=== PATIENT | male | born 1950 | race Caucasian/White ===

== ENCOUNTER 2019-01-30 09:01 | Inpatient (IN) ==
[2019-01-30] MEDS ORDERED: ONDANSETRON 4 MG/2 ML VIAL IV STA (09:23)
[2019-01-30] MEDS ORDERED: PANTOPRAZOLE 40 MG VIAL IV STA (09:23)
[2019-01-30] MEDS ORDERED: METOCLOPRAMIDE 10 MG/2 ML VIAL IV STA (09:23)
[2019-01-30 09:48] LABS: Basophils % 9.1 % (0.0-0.8); Eosinophils % 4.5 % (0.00-10.9); Hematocrit 25.7 VOL% (42.0-52.0); Hemoglobin 7.7 GM/DL (14.0-18.0); Immature Granulocytes % 31.8 %; Immature Granulocytes Absolute 0.07 #; Lymphocytes % 13.6 % (21.2-54.2); Mean Corpuscular Volume 81.3 FL (87-102); Mean Platelet Volume 10.1 FL (9.6-12.0); Monocytes % 9.1 % (1.7-12.7); Neutrophils % 31.9 % (38.7-73.9); Platelet Count 86 T/CUMM (130-400); Red Blood Count 3.16 MC/CUMM (3.8-5.5); Red Cell Distribution Width 16.4 % (9.3-17.3)
[2019-01-30 09:52] LABS: White Blood Count 0.2 T/CUMM (4-12)
[2019-01-30 10:09] LABS: Alanine Aminotransferase 17 U/L (16-61); Albumin 1.4 G/DL (3.4-5.0); Alkaline Phosphatase 137 U/L (45-117); Amylase 9 U/L (25-115); Aspartate Amino Transferase 29 U/L (0-37); Blood Urea Nitrogen 14 MG/DL (7-18); Calcium 7.6 MG/DL (8.5-10.1); Estimated Glom Filtration Rate 100 ML/MIN; Glucose 109 MG/DL (74-106); Osmolality,Calculated 284.1 MOS/KG (273-304); Troponin I < 0.015 NG/ML (0.00-0.045)
[2019-01-30 10:36] LABS: Eosinophils 7 % (0-10); Lymphocytes 31 % (20-55); Segmented Neutrophils 62 % (50-85); Total Cells Counted 100
[2019-01-30 10:37] LABS: Hypochromasia Slight; Microcytosis 1+; Platelet Estimate Decreased
[2019-01-30] MEDS ORDERED: POTASSIUM BICARB EFFERVESCENT 25 MEQ TABLET PO ONE (10:39)
[2019-01-30] MEDS ORDERED: ONDANSETRON 4 MG/2 ML VIAL IV PRN (11:47)
[2019-01-30] MEDS ORDERED: DOCUSATE SODIUM 100 MG CAPSULE PO PRN (11:47)
[2019-01-30] MEDS ORDERED: ACETAMINOPHEN 325 MG TABLET PO PRN (11:47)
[2019-01-30] MEDS ORDERED: SODIUM CHLORIDE 0.9% 1,000 ML IV PRN (13:31)
[2019-01-30] MEDS ORDERED: chlorproMAZINE INJ 25 MG in SODIUM CHLORIDE 0.9% 100 ML IV PRN (13:51)
[2019-01-30] MEDS ORDERED: MEROPENEM 1,000 MG in SODIUM CHLORIDE 0.9% 100 ML IV SCH (14:00)
[2019-01-30] MEDS: DEXT 5% NACL 0.45% KCL 20 MEQ 20 MEQ/1,000 ML BAG IV SCH (14:26)
[2019-01-30] MEDS: VANCOMYCIN INJ 1,000 MG in SODIUM CHLORIDE 0.9% 250 ML IV SCH (14:27)
[2019-01-30] MEDS: FILGRASTIM-SNDZ 300 MCG/0.5 ML SYRINGE SUBCUT SCH (14:29)
[2019-01-30] MEDS: PANTOPRAZOLE 40 MG TABLET PO SCH ×2 (14:29→14:36)
[2019-01-30] MEDS: MORPHINE 4 MG/1 ML VIAL IV PRN (16:32)
[2019-01-30] MEDS: MEROPENEM 1,000 MG in SODIUM CHLORIDE 0.9% 100 ML IV SCH (16:37)
[2019-01-30] MEDS: METOCLOPRAMIDE 10 MG TABLET PO SCH ×2 (16:38→22:37)
[2019-01-30] MEDS: MORPHINE IR 15 MG TABLET PO PRN (17:55)
[2019-01-30] MEDS ORDERED: POTASSIUM CHLORIDE RIDER 100 ML IV ONE (18:22)
[2019-01-30] MEDS ORDERED: POTASSIUM CHLORIDE RIDER 10 MEQ in PREMIX 1 EACH IV PRN (18:24)
[2019-01-30 19:00] LABS: Basophils % 11.1 % (0.0-0.8); Hematocrit 22.3 VOL% (42.0-52.0); Hemoglobin 6.6 GM/DL (14.0-18.0); Immature Granulocytes % 22.2 %; Immature Granulocytes Absolute 0.02 #; Lymphocytes % 44.4 % (21.2-54.2); Mean Corpuscular HGB Conc 29.6 GM/DL (32-36); Mean Corpuscular Volume 81.7 FL (87-102); Mean Platelet Volume 10.1 FL (9.6-12.0); Monocytes % 11.1 % (1.7-12.7); Neutrophils % 11.2 % (38.7-73.9); Platelet Count 48 T/CUMM (130-400); Red Blood Count 2.73 MC/CUMM (3.8-5.5); Red Cell Distribution Width 16.6 % (9.3-17.3)
[2019-01-30 19:06] LABS: White Blood Count 0.1 T/CUMM (4-12)
[2019-01-30 19:42] LABS: Alanine Aminotransferase 14 U/L (16-61); Albumin 1.3 G/DL (3.4-5.0); Alkaline Phosphatase 116 U/L (45-117); Aspartate Amino Transferase 19 U/L (0-37); Blood Urea Nitrogen 12 MG/DL (7-18); Calcium 6.5 MG/DL (8.5-10.1); Estimated Glom Filtration Rate 95 ML/MIN; Glucose 203 MG/DL (74-106); Osmolality,Calculated 291.8 MOS/KG (273-304); Total Protein 4.6 G/DL (6.4-8.3)
[2019-01-30 20:05] LABS: Lymphocytes 75 % (20-55); Segmented Neutrophils 25 % (50-85); Total Cells Counted 100
[2019-01-30 20:06] LABS: Microcytosis 2+; Spherocytes 1+
[2019-01-30 20:11] LABS: Anisocytosis 2+; Hypochromasia 2+; Ovalocytes Few; Platelet Estimate Decreased
[2019-01-30] MEDS: FAMOTIDINE 20 MG TABLET PO SCH (22:38)
[2019-01-30] MEDS: DRONABINOL 2.5 MG CAPSULE PO SCH (22:38)
[2019-01-31] MEDS: DEXT 5% NACL 0.45% KCL 20 MEQ 20 MEQ/1,000 ML BAG IV SCH ×2 (00:21→05:33)
[2019-01-31] MEDS: MEROPENEM 1,000 MG in SODIUM CHLORIDE 0.9% 100 ML IV SCH ×3 (01:03→15:03)
[2019-01-31] MEDS: VANCOMYCIN INJ 1,000 MG in SODIUM CHLORIDE 0.9% 250 ML IV SCH ×2 (02:53→13:04)
[2019-01-31 05:11] LABS: Hematocrit 25.8 VOL% (42.0-52.0); Hemoglobin 7.9 GM/DL (14.0-18.0); Mean Corpuscular HGB Conc 30.6 GM/DL (32-36); Mean Corpuscular Volume 82.2 FL (87-102); Mean Platelet Volume 11.3 FL (9.6-12.0); Platelet Count 47 T/CUMM (130-400); Red Blood Count 3.14 MC/CUMM (3.8-5.5); Red Cell Distribution Width 16.4 % (9.3-17.3)
[2019-01-31 05:13] LABS: White Blood Count 0.1 T/CUMM (4-12)
[2019-01-31 05:21] LABS: Apearance,Urine Slightly Hazy (Clear); Bilirubin,Urine Negative (Negative); Blood, Urine Moderate mg/dL (Negative); Glucose,Urine (UA) 50 mg/dL (Negative); Hyaline Casts,Urine 1 /LPF (0-3); Ketones,Urine Negative (Negative); Mucus,Urine Occasional /LPF (Occasional); Nitrite,Urine Negative (Negative); Protein,Urine Negative; RBC,Urine 4 /HPF (0-4); Urine Color Amber (Yellow); Urine Specific Gravity 1.036 (1.001-1.035); Urine Urobilinogen < 2.0 EU/DL (0.2-1.0); WBC,Urine 2 /HPF (0-6)
[2019-01-31 05:26] LABS: Bilirubin,Total 0.8 MG/DL (0.2-1.0); Calcium 5.9 MG/DL (8.5-10.1); Osmolality,Calculated 286.7 MOS/KG (273-304); Total Protein 4.5 G/DL (6.4-8.3)
[2019-01-31 05:36] LABS: Risk Ratio 4.95; Thyroid Stimulating Hormone 0.496 uIU/ml (0.358-3.74); VLDL CHOLESTEROL 32.2 MG/DL
[2019-01-31 05:41] LABS: Atypical Lymphocytes Few; Lymphocytes 100 % (20-55); Total Cells Counted 100
[2019-01-31 05:42] LABS: Hypochromasia 2+; Microcytosis 1+; Ovalocytes Few
[2019-01-31 05:43] LABS: Platelet Estimate Decreased
[2019-01-31] MEDS ORDERED: SODIUM CHLORIDE 0.9% 1,000 ML IV PRN ×2 (06:51→08:07)
[2019-01-31] MEDS: METOCLOPRAMIDE 10 MG TABLET PO SCH ×4 (07:38→22:57)
[2019-01-31] MEDS: POTASSIUM CHLORIDE 20 MEQ TABLET PO PRN ×4 (07:39→15:05)
[2019-01-31] MEDS: DRONABINOL 2.5 MG CAPSULE PO SCH ×2 (09:10→22:57)
[2019-01-31] MEDS: FILGRASTIM-SNDZ 300 MCG/0.5 ML SYRINGE SUBCUT SCH (09:12)
[2019-01-31] MEDS: CLOTRIMAZOLE 1% CREAM 15 GM TUBE TOP SCH ×2 (09:12→23:02)
[2019-01-31] MEDS: BACITRACIN OINT 0.9 GM PACK TOP SCH ×2 (09:12→22:14)
[2019-01-31] MEDS: PANTOPRAZOLE 40 MG TABLET PO SCH (09:12)
[2019-01-31] MEDS: FAMOTIDINE 20 MG TABLET PO SCH ×2 (09:12→21:59)
[2019-01-31] MEDS: MAGNESIUM CHLORIDE 64 MG TABLET PO SCH ×3 (09:20→21:59)
[2019-01-31] MEDS ORDERED: MAGNESIUM SULFATE 1 GM/2 ML VIAL IM ONE (10:24)
[2019-01-31] MEDS ORDERED: MAGNESIUM SULFATE 1 GM/2 ML VIAL IV ONE (12:26)
[2019-01-31] MEDS ORDERED: MAGNESIUM SULF RIDER 2 GM in PREMIX 1 EACH IV ONE (12:29)
[2019-02-01] MEDS: MEROPENEM 1,000 MG in SODIUM CHLORIDE 0.9% 100 ML IV SCH ×3 (00:15→18:43)
[2019-02-01] MEDS: DEXT 5% NACL 0.45% KCL 20 MEQ 20 MEQ/1,000 ML BAG IV SCH ×5 (02:13→22:44)
[2019-02-01] MEDS: VANCOMYCIN INJ 1,000 MG in SODIUM CHLORIDE 0.9% 250 ML IV SCH ×2 (02:16→15:10)
[2019-02-01 02:46] LABS: Hematocrit 38.1 VOL% (42.0-52.0); Hemoglobin 12.2 GM/DL (14.0-18.0); Mean Corpuscular Volume 81.4 FL (87-102); Mean Platelet Volume 10.7 FL (9.6-12.0); Red Blood Count 4.68 MC/CUMM (3.8-5.5); Red Cell Distribution Width 16.4 % (9.3-17.3)
[2019-02-01 02:54] LABS: Platelet Count 24 T/CUMM (130-400); White Blood Count 0.1 T/CUMM (4-12)
[2019-02-01 03:06] LABS: Albumin 1.5 G/DL (3.4-5.0); Bilirubin,Total 1.4 MG/DL (0.2-1.0); Calcium 7.3 MG/DL (8.5-10.1); Osmolality,Calculated 297.1 MOS/KG (273-304); Total Protein 6.1 G/DL (6.4-8.3)
[2019-02-01 03:43] LABS: Anisocytosis Slight; Hypochromasia 1+; Lymphocytes 82 % (20-55); Microcytosis 1+; Platelet Estimate Decreased; Total Cells Counted 100
[2019-02-01] MEDS ORDERED: MEROPENEM 1,000 MG in SODIUM CHLORIDE 0.9% 100 ML IV SCH (07:30)
[2019-02-01] MEDS ORDERED: FILGRASTIM-SNDZ 300 MCG/0.5 ML SYRINGE SUBCUT SCH (08:34)
[2019-02-01] MEDS: MAGNESIUM CHLORIDE 64 MG TABLET PO SCH ×3 (09:40→20:34)
[2019-02-01] MEDS: FILGRASTIM-SNDZ 480 MCG/0.8 ML SYRINGE SUBCUT SCH (09:42)
[2019-02-01] MEDS: FAMOTIDINE 20 MG TABLET PO SCH ×2 (09:43→20:34)
[2019-02-01] MEDS: METOCLOPRAMIDE 10 MG TABLET PO SCH ×4 (09:43→20:34)
[2019-02-01] MEDS: POTASSIUM CHLORIDE 20 MEQ TABLET PO PRN ×3 (09:43→15:11)
[2019-02-01] MEDS: PANTOPRAZOLE 40 MG TABLET PO SCH (09:43)
[2019-02-01] MEDS: DRONABINOL 2.5 MG CAPSULE PO SCH ×2 (09:44→20:34)
[2019-02-01] MEDS: ALLOPURINOL 300 MG TABLET PO SCH (09:48)
[2019-02-01] MEDS: BACITRACIN OINT 0.9 GM PACK TOP SCH ×2 (09:49→20:34)
[2019-02-01] MEDS: CLOTRIMAZOLE 1% CREAM 15 GM TUBE TOP SCH ×2 (09:51→20:34)
[2019-02-01] MEDS ORDERED: SODIUM CHLORIDE 0.9% 500 ML IV ONE (11:53)
[2019-02-01] MEDS ORDERED: SODIUM CHLORIDE 0.9% 1,000 ML IV ONE (12:10)
[2019-02-01] MEDS ORDERED: METOPROLOL TARTRATE 5 MG/5 ML VIAL IV ONE ×4 (22:09→23:34)
[2019-02-01] MEDS ORDERED: DILTIAZEM 50 MG/10 ML VIAL IV ONE ×2 (22:09→22:21)
[2019-02-01] MEDS ORDERED: DILTIAZEM 25 MG/5 ML VIAL IV ONE (22:10)
[2019-02-01] MEDS ORDERED: LACTATED RINGERS 1,000 ML IV ONE (22:11)
[2019-02-01 22:25] LABS: Allen Test Positive
[2019-02-01] MEDS ORDERED: LACTATED RINGERS 500 ML IV ONE ×2 (22:26→22:32)
[2019-02-01 22:27] LABS: ABG Base Excess -3.4 MMOL/L (-2.5-2.5); ABG HCO3 21.6 MMOL/L (20-26); ABG Oxygen Saturation 99.5 % (95-100); ABG PCO2 34.8 MM HG (35-48); ABG PH 7.387 (7.35-7.45); ABG TCO2 18.6 MMOL/L (23-27)
[2019-02-01] MEDS ORDERED: dilTIAZem Drip 125 MG/125 ML PREMIX IV SCH (22:30)
[2019-02-01 22:39] LABS: Blood Urea Nitrogen 14 MG/DL (7-18); Calcium 6.5 MG/DL (8.5-10.1); Estimated Glom Filtration Rate 67 ML/MIN; Glucose 198 MG/DL (74-106); Osmolality,Calculated 300.3 MOS/KG (273-304)
[2019-02-01 22:51] LABS: INR 2.3
[2019-02-01 22:58] LABS: PT Patient Result 25.3 SECS (9.6-12.2)
[2019-02-01 23:27] LABS: Hematocrit 37.1 VOL% (42.0-52.0); Hemoglobin 11.4 GM/DL (14.0-18.0); Lymphocytes # 0.1 10*3/uL (1.4-4.0); Lymphocytes % 64.3 % (21.2-54.2); Mean Corpuscular HGB Conc 30.7 GM/DL (32-36); Mean Corpuscular Volume 84.3 FL (87-102); Monocytes % 21.4 % (1.7-12.7); Neutrophils % 14.3 % (38.7-73.9); Red Cell Distribution Width 16.8 % (9.3-17.3)
[2019-02-01 23:27] LABS: ABG HCO3 23.5 MMOL/L (20-26); ABG Oxygen Saturation 92.9 % (95-100); ABG TCO2 19.7 MMOL/L (23-27); Allen Test Positive; Pt O2 Delivery Device Other
[2019-02-01 23:31] LABS: White Blood Count 0.1 T/CUMM (4-12)
[2019-02-01 23:32] LABS: Platelet Count 16 T/CUMM (130-400)
[2019-02-01] MEDS ORDERED: SODIUM CHLORIDE 0.9% 1,000 ML IV PRN (23:45)
[2019-02-01] MEDS ORDERED: NOREPINEPHRINE 8 MG in SODIUM CHLORIDE 0.9% 242 ML IV PRN (23:58)
[2019-02-02 00:07] LABS: Apearance,Urine CLOUDY (Clear); Bilirubin,Urine Negative (Negative); Blood, Urine Small mg/dL (Negative); Glucose,Urine (UA) 150 mg/dL (Negative); Ketones,Urine 5 mg/dL (Negative); Mucus,Urine Occasional /LPF (Occasional); Nitrite,Urine Negative (Negative); Protein,Urine 30 MG/DL; RBC,Urine 69 /HPF (0-4); Squamous Epithelial Cell,Urine Occasional /HPF (0-10); Urine Color Amber (Yellow); Urine Specific Gravity > 1.060 (1.001-1.035); Urine Urobilinogen < 2.0 EU/DL (0.2-1.0)
[2019-02-02] MEDS: LEVALBUTEROL 0.63 MG/3 ML NEB RESP TX SCH ×5 (00:40→19:37)
[2019-02-02] MEDS: SODIUM CHLORIDE 0.45% 1,000 ML IV SCH ×4 (00:45→21:20)
[2019-02-02] MEDS: MEROPENEM 1,000 MG in SODIUM CHLORIDE 0.9% 100 ML IV SCH ×3 (00:45→15:50)
[2019-02-02 00:50] LABS: ABG Base Excess -1.8 MMOL/L (-2.5-2.5); ABG HCO3 22.9 MMOL/L (20-26); ABG Oxygen Saturation 98.4 % (95-100); ABG PCO2 36.1 MM HG (35-48); ABG PH 7.404 (7.35-7.45); ABG TCO2 20.5 MMOL/L (23-27); Allen Test Positive; Pt O2 Delivery Device Other
[2019-02-02] MEDS: MORPHINE 4 MG/1 ML VIAL IV PRN (00:58)
[2019-02-02] MEDS ORDERED: LACTATED RINGERS 250 ML IV ONE (01:27)
[2019-02-02 01:32] LABS: Lymphocytes 67 % (20-55); Total Cells Counted 100
[2019-02-02 01:33] LABS: Anisocytosis 1+; Platelet Estimate Decreased
[2019-02-02 04:15] LABS: Hematocrit 33.8 VOL% (42.0-52.0); Hemoglobin 10.1 GM/DL (14.0-18.0); Lymphocytes # 0.1 10*3/uL (1.4-4.0); Lymphocytes % 54.5 % (21.2-54.2); Mean Corpuscular HGB Conc 29.9 GM/DL (32-36); Mean Platelet Volume 10.8 FL (9.6-12.0); Monocytes % 9.1 % (1.7-12.7); Neutrophils % 36.4 % (38.7-73.9); Platelet Count 68 T/CUMM (130-400); Red Blood Count 3.93 MC/CUMM (3.8-5.5)
[2019-02-02 04:20] LABS: White Blood Count 0.1 T/CUMM (4-12)
[2019-02-02 04:29] LABS: Albumin 1.5 G/DL (3.4-5.0); Bilirubin,Total 1.5 MG/DL (0.2-1.0); Total Protein 5.4 G/DL (6.4-8.3)
[2019-02-02] MEDS: VANCOMYCIN INJ 1,000 MG in SODIUM CHLORIDE 0.9% 250 ML IV SCH ×2 (04:35→15:50)
[2019-02-02 04:54] LABS: Atypical Lymphocytes Few; Hypochromasia 1+; Lymphocytes 100 % (20-55); Platelet Estimate Decreased; Total Cells Counted 100
[2019-02-02] MEDS: FILGRASTIM-SNDZ 480 MCG/0.8 ML SYRINGE SUBCUT SCH (08:17)
[2019-02-02] MEDS: METOCLOPRAMIDE 10 MG TABLET PO SCH ×5 (08:18→22:29)
[2019-02-02] MEDS: DRONABINOL 2.5 MG CAPSULE PO SCH ×3 (08:18→22:29)
[2019-02-02] MEDS: MAGNESIUM CHLORIDE 64 MG TABLET PO SCH ×4 (08:18→22:29)
[2019-02-02] MEDS: PANTOPRAZOLE 40 MG TABLET PO SCH (08:18)
[2019-02-02] MEDS: FAMOTIDINE 20 MG TABLET PO SCH ×2 (08:18→21:19)
[2019-02-02] MEDS: ALLOPURINOL 300 MG TABLET PO SCH (08:18)
[2019-02-02] MEDS: BACITRACIN OINT 0.9 GM PACK TOP SCH ×2 (08:19→21:19)
[2019-02-02] MEDS: CLOTRIMAZOLE 1% CREAM 15 GM TUBE TOP SCH ×2 (08:19→21:20)
[2019-02-02] MEDS ORDERED: ACYCLOVIR INJ 640 MG in SODIUM CHLORIDE 0.9% 100 ML IV SCH (10:30)
[2019-02-02] MEDS ORDERED: SODIUM CHLORIDE 0.45% 500 ML IV ONE (17:12)
[2019-02-02] MEDS ORDERED: PHENYLEPHRINE DRIP 40 MG/250 ML PREMIX IV PRN (17:12)
[2019-02-02] MEDS: ACYCLOVIR INJ 640 MG in SODIUM CHLORIDE 0.9% 100 ML IV SCH (17:41)
[2019-02-03] MEDS: LEVALBUTEROL 0.63 MG/3 ML NEB RESP TX SCH ×4 (00:25→19:35)
[2019-02-03] MEDS: MEROPENEM 1,000 MG in SODIUM CHLORIDE 0.9% 100 ML IV SCH ×4 (00:33→23:18)
[2019-02-03 02:53] LABS: Hematocrit 32.4 VOL% (42.0-52.0); Hemoglobin 9.8 GM/DL (14.0-18.0); Lymphocytes # 0.1 10*3/uL (1.4-4.0); Lymphocytes % 41.7 % (21.2-54.2); Mean Corpuscular HGB Conc 30.2 GM/DL (32-36); Mean Corpuscular Volume 84.2 FL (87-102); Mean Platelet Volume 11.4 FL (9.6-12.0); Monocytes % 8.3 % (1.7-12.7); Red Blood Count 3.85 MC/CUMM (3.8-5.5); Red Cell Distribution Width 17.1 % (9.3-17.3)
[2019-02-03 02:56] LABS: White Blood Count 0.1 T/CUMM (4-12)
[2019-02-03 02:57] LABS: Platelet Count 30 T/CUMM (130-400)
[2019-02-03] MEDS: ACYCLOVIR INJ 640 MG in SODIUM CHLORIDE 0.9% 100 ML IV SCH ×3 (03:07→19:47)
[2019-02-03] MEDS: VANCOMYCIN INJ 1,000 MG in SODIUM CHLORIDE 0.9% 250 ML IV SCH ×2 (03:08→16:40)
[2019-02-03 03:11] LABS: Albumin 1.3 G/DL (3.4-5.0); Bilirubin,Total 1.1 MG/DL (0.2-1.0); Calcium 6.5 MG/DL (8.5-10.1); Osmolality,Calculated 301.9 MOS/KG (273-304); Total Protein 5.1 G/DL (6.4-8.3)
[2019-02-03 03:17] LABS: Lymphocytes 20 % (20-55); Platelet Estimate Decreased; Segmented Neutrophils 80 % (50-85); Total Cells Counted 100
[2019-02-03 03:18] LABS: Hypochromasia 1+
[2019-02-03] MEDS: SODIUM CHLORIDE 0.45% 1,000 ML IV SCH ×2 (04:16→11:32)
[2019-02-03] MEDS ORDERED: METOPROLOL TARTRATE 5 MG/5 ML VIAL IV ONE ×2 (07:45→07:47)
[2019-02-03] MEDS: ALLOPURINOL 300 MG TABLET PO SCH (09:34)
[2019-02-03] MEDS: FILGRASTIM-SNDZ 480 MCG/0.8 ML SYRINGE SUBCUT SCH (09:34)
[2019-02-03] MEDS: DRONABINOL 2.5 MG CAPSULE PO SCH ×3 (09:34→20:48)
[2019-02-03] MEDS: METOCLOPRAMIDE 10 MG TABLET PO SCH (09:34)
[2019-02-03] MEDS: MAGNESIUM CHLORIDE 64 MG TABLET PO SCH (09:35)
[2019-02-03] MEDS: FAMOTIDINE 20 MG TABLET PO SCH (09:35)
[2019-02-03] MEDS: BACITRACIN OINT 0.9 GM PACK TOP SCH ×2 (09:35→20:47)
[2019-02-03] MEDS: CLOTRIMAZOLE 1% CREAM 15 GM TUBE TOP SCH ×2 (09:35→20:47)
[2019-02-03] MEDS ORDERED: INFLUENZA VIRUS VACCINE 0.5 ML SYRINGE IM ONE (11:36)
[2019-02-03] MEDS: MORPHINE 4 MG/1 ML VIAL IV PRN ×3 (12:43→20:42)
[2019-02-03] MEDS: FAMOTIDINE 20 MG/2 ML VIAL IV SCH (20:45)
[2019-02-04] MEDS: LEVALBUTEROL 0.63 MG/3 ML NEB RESP TX SCH ×4 (00:17→19:35)
[2019-02-04] MEDS: ACYCLOVIR INJ 640 MG in SODIUM CHLORIDE 0.9% 100 ML IV SCH ×2 (02:02→10:41)
[2019-02-04] MEDS: MORPHINE 4 MG/1 ML VIAL IV PRN ×5 (02:21→21:47)
[2019-02-04] MEDS: VANCOMYCIN INJ 1,000 MG in SODIUM CHLORIDE 0.9% 250 ML IV SCH (04:05)
[2019-02-04 05:08] LABS: Hematocrit 30.7 VOL% (42.0-52.0); Hemoglobin 9.2 GM/DL (14.0-18.0); Immature Granulocytes % 6.3 %; Immature Granulocytes Absolute 0.01 #; Mean Corpuscular Volume 85.3 FL (87-102); Mean Platelet Volume 12.4 FL (9.6-12.0); Monocytes % 12.5 % (1.7-12.7); Neutrophils % 56.2 % (38.7-73.9); Red Cell Distribution Width 17.2 % (9.3-17.3)
[2019-02-04 05:12] LABS: Platelet Count 24 T/CUMM (130-400); White Blood Count 0.2 T/CUMM (4-12)
[2019-02-04 05:24] LABS: Albumin 1.1 G/DL (3.4-5.0); Bilirubin,Total 0.8 MG/DL (0.2-1.0); Calcium 6.4 MG/DL (8.5-10.1); Total Protein 4.6 G/DL (6.4-8.3)
[2019-02-04 05:27] LABS: Hypochromasia 1+; Platelet Estimate Decreased; Segmented Neutrophils 100 % (50-85); Total Cells Counted 100
[2019-02-04] MEDS: SODIUM CHLORIDE 0.45% 1,000 ML IV SCH (07:53)
[2019-02-04] MEDS: MEROPENEM 1,000 MG in SODIUM CHLORIDE 0.9% 100 ML IV SCH ×3 (08:47→23:39)
[2019-02-04] MEDS: BACITRACIN OINT 0.9 GM PACK TOP SCH ×2 (08:48→21:00)
[2019-02-04] MEDS: CLOTRIMAZOLE 1% CREAM 15 GM TUBE TOP SCH ×2 (08:48→21:00)
[2019-02-04] MEDS: FILGRASTIM-SNDZ 480 MCG/0.8 ML SYRINGE SUBCUT SCH (08:49)
[2019-02-04] MEDS: ALLOPURINOL 300 MG TABLET PO SCH (08:49)
[2019-02-04] MEDS: DRONABINOL 2.5 MG CAPSULE PO SCH ×2 (08:49→22:20)
[2019-02-04] MEDS: FAMOTIDINE 20 MG/2 ML VIAL IV SCH ×2 (08:49→20:59)
[2019-02-04] MEDS: DEXTROSE 5% 1,000 ML IV SCH ×2 (10:41→22:20)
[2019-02-04] MEDS: POTASSIUM CHLORIDE RIDER 10 MEQ in PREMIX 1 EACH IV PRN ×4 (13:15→16:30)
[2019-02-05] MEDS: LEVALBUTEROL 0.63 MG/3 ML NEB RESP TX SCH ×4 (01:18→20:07)
[2019-02-05] MEDS: MORPHINE 4 MG/1 ML VIAL IV PRN ×2 (02:15→21:36)
[2019-02-05] MEDS: DEXTROSE 5% 1,000 ML IV SCH ×4 (02:18→22:11)
[2019-02-05 04:46] LABS: Hematocrit 32.3 VOL% (42.0-52.0); Hemoglobin 9.5 GM/DL (14.0-18.0); Lymphocytes # 0.1 10*3/uL (1.4-4.0); Lymphocytes % 14.6 % (21.2-54.2); Mean Corpuscular HGB Conc 29.4 GM/DL (32-36); Mean Corpuscular Volume 86.1 FL (87-102); Monocytes % 14.6 % (1.7-12.7); Neutrophils % 70.8 % (38.7-73.9); Red Blood Count 3.75 MC/CUMM (3.8-5.5); Red Cell Distribution Width 17.2 % (9.3-17.3)
[2019-02-05 04:52] LABS: Platelet Count 30 T/CUMM (130-400); White Blood Count 0.4 T/CUMM (4-12)
[2019-02-05 05:05] LABS: Albumin 1.1 G/DL (3.4-5.0); Bilirubin,Total 0.6 MG/DL (0.2-1.0); Calcium 7.2 MG/DL (8.5-10.1); Osmolality,Calculated 314.2 MOS/KG (273-304); Total Protein 4.6 G/DL (6.4-8.3)
[2019-02-05 05:10] LABS: Lymphocytes 25 % (20-55); Segmented Neutrophils 67 % (50-85); Total Cells Counted 100
[2019-02-05 05:11] LABS: Hypochromasia 1+; Platelet Estimate Decreased
[2019-02-05] MEDS: POTASSIUM CHLORIDE RIDER 20 MEQ in PREMIX 1 EACH IV PRN ×3 (07:06→18:52)
[2019-02-05] MEDS: MEROPENEM 1,000 MG in SODIUM CHLORIDE 0.9% 100 ML IV SCH ×2 (08:50→15:33)
[2019-02-05] MEDS: FAMOTIDINE 20 MG/2 ML VIAL IV SCH ×2 (08:59→21:17)
[2019-02-05] MEDS: ALLOPURINOL 300 MG TABLET PO SCH (08:59)
[2019-02-05] MEDS: BACITRACIN OINT 0.9 GM PACK TOP SCH ×2 (09:00→21:17)
[2019-02-05] MEDS: DRONABINOL 2.5 MG CAPSULE PO SCH ×2 (09:00→21:26)
[2019-02-05] MEDS: CLOTRIMAZOLE 1% CREAM 15 GM TUBE TOP SCH ×2 (09:00→21:18)
[2019-02-05] MEDS: FILGRASTIM-SNDZ 480 MCG/0.8 ML SYRINGE SUBCUT SCH (09:33)
[2019-02-05] MEDS: DEXTROSE 5% IV SCH ×2 (10:25→17:37)
[2019-02-05] MEDS: ACYCLOVIR IV SCH ×2 (10:25→17:37)
[2019-02-05] MEDS: MORPHINE IR 15 MG TABLET PO PRN (14:35)
[2019-02-06] MEDS: MEROPENEM 1,000 MG in SODIUM CHLORIDE 0.9% 100 ML IV SCH ×3 (00:07→16:34)
[2019-02-06] MEDS: LEVALBUTEROL 0.63 MG/3 ML NEB RESP TX SCH ×4 (01:41→19:10)
[2019-02-06] MEDS: DEXTROSE 5% IV SCH ×3 (02:22→17:45)
[2019-02-06] MEDS: ACYCLOVIR IV SCH ×3 (02:22→17:45)
[2019-02-06] MEDS: FAMOTIDINE 20 MG/2 ML VIAL IV SCH ×2 (08:38→22:00)
[2019-02-06] MEDS: FILGRASTIM-SNDZ 480 MCG/0.8 ML SYRINGE SUBCUT SCH (08:38)
[2019-02-06] MEDS: BACITRACIN OINT 0.9 GM PACK TOP SCH ×2 (08:39→22:00)
[2019-02-06] MEDS: ALLOPURINOL 300 MG TABLET PO SCH (08:39)
[2019-02-06] MEDS: DRONABINOL 2.5 MG CAPSULE PO SCH ×2 (08:39→22:00)
[2019-02-06] MEDS: CLOTRIMAZOLE 1% CREAM 15 GM TUBE TOP SCH ×2 (08:39→23:38)
[2019-02-06] MEDS: DEXTROSE 5% 1,000 ML IV SCH ×2 (09:35→23:38)
[2019-02-06] MEDS ORDERED: VANCOMYCIN INJ 1,000 MG in SODIUM CHLORIDE 0.9% 250 ML IV SCH (10:00)
[2019-02-06] MEDS: POTASSIUM CHLORIDE RIDER 10 MEQ in PREMIX 1 EACH IV PRN (12:41)
[2019-02-06 13:59] LABS: Basophils % 0.9 % (0.0-0.8); Hematocrit 33.2 VOL% (42.0-52.0); Hemoglobin 9.9 GM/DL (14.0-18.0); Immature Granulocytes % 6.6 %; Immature Granulocytes Absolute 0.14 #; Lymphocytes # 0.2 10*3/uL (1.4-4.0); Mean Corpuscular HGB Conc 29.8 GM/DL (32-36); Mean Corpuscular Volume 85.3 FL (87-102); Monocytes % 14.1 % (1.7-12.7); Neutrophils % 70.4 % (38.7-73.9); Platelet Count 43 T/CUMM (130-400); Red Blood Count 3.89 MC/CUMM (3.8-5.5); Red Cell Distribution Width 17.1 % (9.3-17.3); White Blood Count 2.1 T/CUMM (4-12)
[2019-02-06 14:14] LABS: Calcium 7.1 MG/DL (8.5-10.1); Osmolality,Calculated 299.1 MOS/KG (273-304)
[2019-02-06 14:26] LABS: Band Neutrophils 7 % (0-10); Eosinophils 1 % (0-10); Lymphocytes 9 % (20-55); Segmented Neutrophils 63 % (50-85); Total Cells Counted 100
[2019-02-06 14:27] LABS: Hypochromasia 1+; Platelet Estimate Decreased
[2019-02-06 14:28] LABS: Reactive Lymphocytes Few
[2019-02-06] MEDS: POTASSIUM CHLORIDE RIDER 20 MEQ in PREMIX 1 EACH IV PRN (17:16)
[2019-02-07] MEDS: MEROPENEM 1,000 MG in SODIUM CHLORIDE 0.9% 100 ML IV SCH (00:30)
[2019-02-07] MEDS: LEVALBUTEROL 0.63 MG/3 ML NEB RESP TX SCH ×4 (00:42→19:32)
[2019-02-07] MEDS ORDERED: MORPHINE 4 MG/1 ML VIAL IV PRN (02:04)
[2019-02-07] MEDS: ACYCLOVIR IV SCH ×3 (02:17→17:34)
[2019-02-07] MEDS: DEXTROSE 5% IV SCH ×3 (02:17→17:34)
[2019-02-07 05:00] LABS: Calcium 6.6 MG/DL (8.5-10.1); Osmolality,Calculated 301.9 MOS/KG (273-304)
[2019-02-07] MEDS: POTASSIUM CHLORIDE RIDER 20 MEQ in PREMIX 1 EACH IV PRN ×2 (07:10→10:04)
[2019-02-07 09:43] LABS: Basophils % 0.7 % (0.0-0.8); Hematocrit 32.1 VOL% (42.0-52.0); Hemoglobin 9.7 GM/DL (14.0-18.0); Immature Granulocytes % 6.7 %; Immature Granulocytes Absolute 0.39 #; Lymphocytes # 0.2 10*3/uL (1.4-4.0); Lymphocytes % 3.1 % (21.2-54.2); Mean Corpuscular HGB Conc 30.2 GM/DL (32-36); Mean Corpuscular Volume 84.7 FL (87-102); Mean Platelet Volume 13.1 FL (9.6-12.0); Monocytes % 13.3 % (1.7-12.7); NRBC # 0.02 10*3/uL; Neutrophils % 76.2 % (38.7-73.9); Platelet Count 62 T/CUMM (130-400); Red Blood Count 3.79 MC/CUMM (3.8-5.5); Red Cell Distribution Width 17.2 % (9.3-17.3); White Blood Count 5.8 T/CUMM (4-12)
[2019-02-07] MEDS: FAMOTIDINE 20 MG/2 ML VIAL IV SCH ×2 (09:47→21:19)
[2019-02-07] MEDS: FILGRASTIM-SNDZ 480 MCG/0.8 ML SYRINGE SUBCUT SCH (09:47)
[2019-02-07] MEDS: ALLOPURINOL 300 MG TABLET PO SCH (09:47)
[2019-02-07] MEDS: BACITRACIN OINT 0.9 GM PACK TOP SCH ×2 (09:53→21:18)
[2019-02-07] MEDS: CLOTRIMAZOLE 1% CREAM 15 GM TUBE TOP SCH ×2 (09:54→21:18)
[2019-02-07] MEDS: DEXTROSE 5% 1,000 ML IV SCH ×3 (09:54→21:18)
[2019-02-07 10:03] LABS: Bilirubin,Total 0.8 MG/DL (0.2-1.0); Calcium 6.6 MG/DL (8.5-10.1); Osmolality,Calculated 297.1 MOS/KG (273-304); Total Protein 4.4 G/DL (6.4-8.3)
[2019-02-07] MEDS: DRONABINOL 2.5 MG CAPSULE PO SCH ×2 (10:05→21:00)
[2019-02-07 10:06] LABS: Band Neutrophils 10 % (0-10); Hypochromasia 1+; Lymphocytes 4 % (20-55); Nucleated Red Blood Cells 1 (0-5); Platelet Estimate Decreased; Segmented Neutrophils 72 % (50-85); Total Cells Counted 100
[2019-02-07] MEDS: MEROPENEM 500 MG in SODIUM CHLORIDE 0.9% 100 ML IV SCH ×2 (12:37→17:34)
[2019-02-08] MEDS: MEROPENEM 500 MG in SODIUM CHLORIDE 0.9% 100 ML IV SCH ×2 (00:41→07:20)
[2019-02-08] MEDS: LEVALBUTEROL 0.63 MG/3 ML NEB RESP TX SCH ×3 (01:25→13:15)
[2019-02-08] MEDS: ACYCLOVIR IV SCH (03:10)
[2019-02-08] MEDS: DEXTROSE 5% IV SCH (03:10)
[2019-02-08 03:41] LABS: Basophils # 0.1 10*3/uL (0.0-0.2); Basophils % 0.5 % (0.0-0.8); Hematocrit 31.4 VOL% (42.0-52.0); Hemoglobin 9.7 GM/DL (14.0-18.0); Immature Granulocytes % 6.5 %; Immature Granulocytes Absolute 0.73 #; Lymphocytes # 0.3 10*3/uL (1.4-4.0); Lymphocytes % 2.2 % (21.2-54.2); Mean Corpuscular HGB Conc 30.9 GM/DL (32-36); Mean Corpuscular Volume 82.2 FL (87-102); Monocytes % 9.8 % (1.7-12.7); Platelet Count 81 T/CUMM (130-400); Red Blood Count 3.82 MC/CUMM (3.8-5.5); Red Cell Distribution Width 16.9 % (9.3-17.3); White Blood Count 11.2 T/CUMM (4-12)
[2019-02-08 03:47] LABS: Mean Platelet Volume 12.5 FL (9.6-12.0)
[2019-02-08 04:07] LABS: Band Neutrophils 4 % (0-10); Eosinophils 1 % (0-10); Hypochromasia 1+; Lymphocytes 3 % (20-55); Platelet Estimate Decreased; Segmented Neutrophils 83 % (50-85); Total Cells Counted 100
[2019-02-08 04:32] LABS: Calcium 6.3 MG/DL (8.5-10.1); Osmolality,Calculated 304.6 MOS/KG (273-304)
[2019-02-08] MEDS: DEXTROSE 5% 1,000 ML IV SCH ×2 (08:10→16:13)
[2019-02-08] MEDS ORDERED: DIPHENOXYLATE/ATROPINE 2.5-0.025 MG TABLET PO PRN (08:24)
[2019-02-08] MEDS: POTASSIUM CHLORIDE RIDER 20 MEQ in PREMIX 1 EACH IV PRN ×2 (08:49→12:01)
[2019-02-08] MEDS: ALLOPURINOL 300 MG TABLET PO SCH ×2 (08:52→10:34)
[2019-02-08] MEDS: FAMOTIDINE 20 MG/2 ML VIAL IV SCH (08:52)
[2019-02-08] MEDS: BACITRACIN OINT 0.9 GM PACK TOP SCH (08:53)
[2019-02-08] MEDS: CLOTRIMAZOLE 1% CREAM 15 GM TUBE TOP SCH (08:53)
[2019-02-08] MEDS ORDERED: VANCOMYCIN INJ 1,000 MG in SODIUM CHLORIDE 0.9% 250 ML IV SCH (09:00)
[2019-02-08] MEDS ORDERED: DESITIN 4OZ/NYSTATIN 15 GRAM MIXTURE PASTE TOP SCH (11:00)
[2019-02-08 16:11] VITALS: BP 110/59
[2019-02-08] MEDS ORDERED: valACYclovir 500 MG TABLET PO SCH (21:00)
== END 2019-02-08 16:34 | DRG 871 ==
LOC: EDUNIT# → EDBD → N.ED 09:01 → N.EDINP 11:47 → SUATTDRO 11:48 → N.EDINP 12:53 → N.4E 12:58 → N.ICU 02-01 16:33 → N.4E 02-03 12:07
PROVIDERS: ADMIT Internal Medicine; ATTEND Internal Medicine